=== PATIENT | female | born 1935 | race Caucasian/White ===

== ENCOUNTER 2021-09-02 10:05 | Observation (INO) ==
[2021-09-02 10:28] LABS: ABS Eosinophils 0.1 10^3/ul (0-0.6); ABS Lymphocytes 1.2 10^3/ul (1.0-4.8); ABS Monocytes 0.7 10^3/ul (0-0.8); ABS Neutrophils 4.6 10^3/ul (1.5-7.7); Hematocrit 32 % (35-47); Hemoglobin 10.7 g/dL (12.0-16.0); Lymphocyte % 17.5 %; Mean Corpuscular HGB Conc 33 g/dL (31-36); Mean Corpuscular Hemoglobin 30 pg (27-31); Mean Corpuscular Volume 91 fL (80-97); Mean Platelet Volume 6.3 fL (7.4-10.4); Platelet Count 484 10^3/uL (150-450); Red Blood Count 3.54 10^6 /uL (3.70-4.87); Red Cell Distribution Width 14 % (10-15); White Blood Count 6.6 10^3/uL (3.5-10.8)
[2021-09-02 10:42] LABS: ALT 12 U/L (7-52); AST 16 U/L (13-39); Albumin 3.7 g/dL (3.2-5.2); Albumin/Globulin Ratio 0.8 (1-3); Alkaline Phosphatase 82 U/L (35-149); Anion Gap 10 mmol/L (2-11); Blood Urea Nitrogen 36 mg/dL (6-24); CO2 Carbon Dioxide 23 mmol/L (22-32); Calcium 9.5 mg/dL (8.6-10.3); Chloride 105 mmol/L (101-111); Globulin 4.5 g/dL (2-4); Glucose 108 mg/dL (70-100); Potassium 4.7 mmol/L (3.5-5.0); Sodium 138 mmol/L (135-145); Total Protein 8.2 g/dL (6.4-8.9)
[2021-09-02 10:44] LABS: Troponin I 0.01 ng/mL (<0.03)
[2021-09-02 12:02] LABS: Urine Appearance Cloudy; Urine Bilirubin Negative (Negative); Urine Blood Negative (Negative); Urine Color Straw; Urine Glucose Negative (Negative); Urine Ketones Negative (Negative); Urine Nitrite Negative (Negative); Urine Protein 1+(30 mg/dL) (Negative); Urine Specific Gravity 1.009 (1.002-1.030); Urine Urobilinogen Negative (Negative)
[2021-09-02 12:11] LABS: Urine Bacteria 1+ (Absent); Urine Red Blood Cell Trace(0-2/hpf) (Absent); Urine Squamous Epithelial Cell Present (Absent); Urine White Blood Cell 2+(11-20/hpf) (Absent)
[2021-09-02 16:39] LABS: Cholesterol 199 mg/dL; HDL Cholesterol 34.7 mg/dL; LDL Cholesterol 123 mg/dL; Triglycerides 205 mg/dL
[2021-09-02 16:58] LABS: % Iron Saturation 17 % (15-55); Iron 54 ug/dL (50-212); Total Iron Binding Capacity 316 mcg/dL (250-450); Transferrin 226 mg/dL (203-362); Unsaturated Iron Binding < 301 ug/dL
[2021-09-02] MEDS ORDERED: Enoxaparin 40 MG/0.4 ML SYR SUBCUT SCH (17:00)
[2021-09-02 17:09] LABS: TSH Ultra Thyroid Stim Horm 3.13 mcIU/mL (0.34-5.60)
[2021-09-02] MEDS: Enoxaparin 30 MG/0.3 ML SYR SUBCUT SCH (17:14)
[2021-09-02 17:15] LABS: Ferritin 108.2 ng/mL (11-307)
[2021-09-02] MEDS: Aspirin EC 81 mg TAB.EC (enteric coated) PO SCH (17:15)
[2021-09-02 17:20] LABS: Vitamin B12 264 pg/mL (180-914)
[2021-09-02 17:33] LABS: Rapid COVID-19 Molecular Undetected (Undetected)
[2021-09-02] MEDS: Cyanocobalamin INJ 1,000 MCG/ML VIAL 1 ML VIAL IM ONE ×2 (19:49→19:54)
[2021-09-03 05:56] LABS: Hematocrit 30 % (35-47); Mean Corpuscular HGB Conc 33 g/dL (31-36); Mean Corpuscular Hemoglobin 30 pg (27-31); Mean Corpuscular Volume 90 fL (80-97); Mean Platelet Volume 6.1 fL (7.4-10.4); Platelet Count 427 10^3/uL (150-450); Red Blood Count 3.35 10^6 /uL (3.70-4.87); Red Cell Distribution Width 14 % (10-15); White Blood Count 5.9 10^3/uL (3.5-10.8)
[2021-09-03 06:11] LABS: Calcium 9.2 mg/dL (8.6-10.3); Potassium 4.8 mmol/L (3.5-5.0)
[2021-09-03] MEDS: Aspirin EC 81 mg TAB.EC (enteric coated) PO SCH (09:43)
[2021-09-03] MEDS: Enoxaparin 30 MG/0.3 ML SYR SUBCUT SCH (09:43)
[2021-09-03] MEDS: Iron Sucrose 200 MG in NS 0.9% 100 ml BAG 100 ML IVPB SCH (16:39)
[2021-09-04 06:17] LABS: Magnesium 1.8 mg/dL (1.9-2.7)
[2021-09-04 06:20] LABS: Potassium 5.2 mmol/L (3.5-5.0)
[2021-09-04] MEDS ORDERED: Magnesium Sulfate IV 1GM/100ML 1 GM/100 ML BAG IV ONE (08:16)
[2021-09-04] MEDS: Aspirin EC 81 mg TAB.EC (enteric coated) PO SCH (09:16)
[2021-09-04] MEDS: Enoxaparin 30 MG/0.3 ML SYR SUBCUT SCH (09:17)
[2021-09-04] MEDS: Iron Sucrose 200 MG in NS 0.9% 100 ml BAG 100 ML IVPB SCH (15:35)
[2021-09-05 06:38] LABS: ABS Eosinophils 0.1 10^3/ul (0-0.6); ABS Lymphocytes 1.4 10^3/ul (1.0-4.8); ABS Monocytes 0.7 10^3/ul (0-0.8); ABS Neutrophils 3.5 10^3/ul (1.5-7.7); Eosinophil % 1.6 %; Hematocrit 29 % (35-47); Hemoglobin 9.7 g/dL (12.0-16.0); Lymphocyte % 24.4 %; Mean Corpuscular HGB Conc 33 g/dL (31-36); Mean Corpuscular Hemoglobin 30 pg (27-31); Mean Corpuscular Volume 91 fL (80-97); Mean Platelet Volume 6.6 fL (7.4-10.4); Platelet Count 425 10^3/uL (150-450); Red Blood Count 3.19 10^6 /uL (3.70-4.87); Red Cell Distribution Width 14 % (10-15); White Blood Count 5.7 10^3/uL (3.5-10.8)
[2021-09-05 06:53] LABS: Calcium 8.7 mg/dL (8.6-10.3); Magnesium 2.1 mg/dL (1.9-2.7); Potassium 4.6 mmol/L (3.5-5.0)
[2021-09-05] MEDS ORDERED: Regadenoson 0.4 MG/5 ML SYRINGE ONE (12:46)
[2021-09-05 13:17] VITALS: BP 135/61
[2021-09-05] MEDS: Enoxaparin 30 MG/0.3 ML SYR SUBCUT SCH (14:57)
[2021-09-05] MEDS: Aspirin EC 81 mg TAB.EC (enteric coated) PO SCH (14:57)
[2021-09-05] MEDS: Iron Sucrose 200 MG in NS 0.9% 100 ml BAG 100 ML IVPB SCH (17:42)
== END 2021-09-05 19:00 | disposition home or self-care (01) ==
LOC: ED 10:05 → SUATTDRO 16:02 → INTOOBSV 16:02 → EDHOLD 16:02 → MEDTELE 19:57
PROVIDERS: ADMIT Internal Medicine; ATTEND Internal Medicine